=== PATIENT | male | born 1975 | race Caucasian/White ===

== ENCOUNTER 2016-12-17 20:12 | Emergency (ER) | payer MEDICAID ==
[~2016-12-17] VITALS: Ht 162.6 cm; Wt 76.4 kg
[2016-12-17 20:18] VITALS: Ht 162.6 cm; Wt 76.4 kg
[2016-12-17] MEDS ORDERED: HYDROCODONE/APAP (5/325) TAB PO ONE (20:30)
[2016-12-17] MEDS ORDERED: CYCL-319 PO (20:53)
[2016-12-17] MEDS ORDERED: DICL75TA2 PO (20:53)
[2016-12-17] MEDS ORDERED: METH4TAB PO (20:55)
--- NOTE | 2016-12-17 21:07 | RADRPT ---
PROCEDURE: XR Hip. CLINICAL INDICATION: Pain. TECHNIQUE: AP and frog lateral views of the right hip were performed. COMPARISON: No. FINDINGS: The soft tissues and bony elements are normal. The right SI joints and hip joint appear normal. A gonadal shield is noted in place. IMPRESSION: 1. Normal AP and frog-leg views of the right hip. RPTAT:AAJJ Physician Hilda Date Time Electronically viewed and signed by Romeo Verdin Physician on 12/17/2016 21:07 FLAKITA/
--- NOTE | 2016-12-17 21:13 | ERD ---
ER Documentation Chief Complaint Date/Time DATE: 12/17/16 TIME: 21:12 Chief Complaint right hip pain,no trauma/no fall HPI This 41-year-old male presents to the ER for evaluation of right hip pain. The patient denies any trauma. He states that he was lifting something heavy and felt a pain in his right hip. The patient states that he is able to walk however is walking with a limp. He localizes the pain to the right hip with no radiation. He denies any numbness or tingling. ROS All systems reviewed and are negative except as per history of present illness. Medications Home Meds Reported Medications Methylprednisolone* (Medrol*) 4 Mg Tab, 4 MG PO TID, TAB TAKE 2TAB-QAM,1TAB-LUNCH,2TAB-QHS 12/17/16 Diclofenac Sodium* (Diclofenac Sodium*) 75 Mg Tablet.dr, 75 MG PO BID, #60 TAB 12/17/16 Cyclobenzaprine Hcl* (Cyclobenzaprine Hcl*) 10 Mg Tablet, 10 MG PO QHS, #60 TAB 12/17/16 Allergies Allergies: Coded Allergies: No Known Allergy (Unverified , 12/17/16) PMhx/Soc Medical and Surgical Hx: pt denies Medical Hx, pt denies Surgical Hx Hx Alcohol Use: No Hx Substance Use: No Hx Tobacco Use: No Smoking Status: Never smoker Physical Exam Vitals Vital Signs Date Time Temp Pulse Resp B/P Pulse Ox O2 Delivery O2 Flow Rate FiO2 12/17/16 20:18 98.1 70 18 135/77 97 Physical Exam Const: No acute distress Head: Atraumatic Eyes: Normal Conjunctiva ENT: Normal External Ears, Nose and Mouth. Neck: Full range of motion..~ No meningismus. Resp: Clear to auscultation bilaterally Cardio: Regular rate and rhythm, no murmurs Abd: Soft, non tender, non distended. Normal bowel sounds Skin: No petechiae or rashes Back: No midline or flank tenderness Ext: Tenderness to palpation of ASIS on the right, no cyanosis, or edema Neur: Awake and alert Psych: Normal Mood and Affect Results 24 hrs Current Medications Medications (Trade) Dose Ordered Sig/Renny Route PRN Reason Start Time Stop Time Status Last Admin Dose Admin Acetaminophen/ Hydrocodone Bitart (Fabens (5/325)) 1 tab ONCE ONCE PO 12/17/16 20:30 12/17/16 20:31 DC 12/17/16 20:31 Procedures/MDM X-ray Hip 2V Interpreted by me: Bones: [No fracture] Joints: [No dislocation] Foreign body: [None] This 41-year-old male presents to the emergency room for evaluation of right- sided hip pain. The patient has no trauma to the area, x-ray does not reveal any fracture. The patient is able to ambulate however he is walking with a limp. The patient will be discharged at this time with crutches, Motrin, Fabens for breakthrough pain with outpatient referral to orthopedics. Departure Diagnosis: Primary Impression: Right hip pain Condition: Stable KORI ELIZABETH DO Dec 17, 2016 21:13
[2016-12-17] MEDS ORDERED: IBUP800T25 PO (21:14)
[2016-12-17] MEDS ORDERED: HYDR-906 PO (21:14)
== END 2016-12-17 21:31 | disposition home or self-care (01) ==
LOC: E/R 20:12
DX: M25.551 Pain in right hip (principal)
CPT/HCPCS: 73510; Z7502; Z7610